=== PATIENT | female | born 1975 | race Two or more races ===

== ENCOUNTER 2018-10-25 05:50 | Day surgery (SDC) | payer OTHER ==
[~2018-10-25 05:50] MED LIST: VITAMIN C500 M6 PO; VITAMIN D10000 UNIT PO
[2018-10-25] MEDS ORDERED: PERCOCET 5-3251 EACH PO (09:23)
[2018-10-27] MEDS ORDERED: ROCALTROL0.25 MCG (19:00)
== END 2018-10-25 11:00 | disposition home or self-care (01) ==
LOC: CIR.AMB 05:50
DX: D35.1 Benign neoplasm of parathyroid gland (principal)

== ENCOUNTER → 2018-10-27 | Emergency (ER) | payer OTHER ==
[~2018-10-27] VITALS: Ht 175.3 cm; Wt 73.5 kg
[~2018-10-27] MED LIST changes: +PERCOCET 5-3251 EACH PO; +ROCALTROL0.25 MCG
== END | disposition home or self-care (01) ==
LOC: ER 17:45
DX: R25.2 Cramp and spasm (principal); E16.1 Other hypoglycemia